=== PATIENT | female | born 1985 | race Caucasian/White ===

== ENCOUNTER 2017-10-14 22:04 | Emergency (ER) | payer OTHER ==
[~2017-10-14] VITALS: Ht 170.2 cm; Wt 86.2 kg
[~2017-10-14 22:04] MED LIST: ACET325; ACET500 PO; ALBIPROI INH; ALBU.083IS IH; ALBU90OI INH; ALBU90OI61 INH; ARIP10 PO; AZIT250 PO; AZIT500 PO; BENZ1 PO; BENZ100A PO; BENZ2 PO; BIRTH CONTROL; BUPR1 PO; CEPH500; CEPH500 PO; CLIN300 PO; Crutch1 EACH MISC; DIVA500EC PO; DOXY100 PO; ESCI10; GUAI100SY PO; GUAI600T33 PO; HALO5 PO; HYDACE5 PO; HYDGUAL120 PO; HYDHOMSY PO; HYDPAM100; Haldol 5 mg Tab5 MG PO; IBUP800 PO; LITH300C PO; MEDR150I IM; META800 PO; OLAN10 PO; OXCA300; OXYACE5T PO; PRED20 PO; PRENZ PO; REMERON PO; RXHYDACE PO; RXOXYACE PO; SULTRIDS PO; TRAM50 PO; TRAZ50; TREANDA25 MG PO; [UNRECOGNIZED DRUG - REMARK]
[2017-10-14 22:30] LABS: BASOPHILS ABSOLUTE AUTO 0.04 K/mm3 (0.00-0.23); BASOPHILS PERCENT AUTO 1 % (0-2); EOSINOPHILS ABSOLUTE AUTO 0.07 K/mm3 (0.00-0.68); EOSINOPHILS PERCENT AUTO 1 % (0-6); Hematocrit 37.3 % (33.0-51.0); Hemoglobin 12.5 g/dL (11.5-16.0); IMMATURE GRAN ABSOLUTE AUTO 0.02 K/mm3 (0.00-0.10); IMMATURE GRAN PERCENT AUTO 0 % (0-1); LYMPHOCYTES ABSOLUTE AUTO 1.37 K/mm3 (0.84-5.20); LYMPHOCYTES PERCENT AUTO 19 % (21-46); MONOCYTES ABSOLUTE AUTO 0.48 K/mm3 (0.16-1.47); MONOCYTES PERCENT AUTO 7 % (4-13); Mean Corpuscular HGB 30.5 pg (26.0-34.0); Mean Corpuscular HGB Conc 33.5 g/dL (31.5-36.5); Mean Corpuscular Volume 91 fL (80-100); Mean Platelet Volume 9.6 fL (9.1-12.4); NEUTROPHILS ABSOLUTE AUTO 5.07 K/mm3 (1.96-9.15); NEUTROPHILS PERCENT AUTO 72 % (41-73); Platelet Count 322 K/mm3 (150-400); RDW Coefficient Variation 12.8 % (11.7-14.2); RDW Standard Deviation 42.3 fL (35.1-46.3); White Blood Cell Count 7.05 K/mm3 (4.00-11.30)
[2017-10-14 22:44] LABS: International Normalized Ratio 1.03; Prothrombin Time Results 10.6 Sec (9.7-11.5)
[2017-10-14 23:04] LABS: Alanine Aminotransfer (ALT/SGP 29 U/L (12-78); Albumin, Blood 3.5 g/dL (3.4-5.0); Albumin/Globulin Ratio 1.2 (0.8-1.8); Alk Phos 67 U/L (50-136); Anion Gap 12 mmol/L (6-16); Aspartate Aminotrans (AST/SGOT 21 U/L (12-37); Bilirubin, Total 0.1 mg/dL (0.1-1.0); Blood Urea Nitrogen 16 mg/dL (8-24); Bun/Creatinine Ratio 25.7 (12.0-20.0); CO2, Blood 21 mmol/L (21-32); Calcium, Blood 7.8 mg/dL (8.5-10.1); Chloride, Blood 110 mmol/L (98-108); Creatinine, Blood 0.62 mg/dL (0.40-1.00); Ethanol (Alcohol), Blood, Med <3 mg/dL; Glomerular Filtration Rate >60 (60-); Glucose, Blood 92 mg/dL (70-99); Potassium, Blood 3.8 mmol/L (3.5-5.5); Sodium, Blood 143 mmol/L (136-145); Total Protein, Blood 6.5 g/dL (6.4-8.2)
== END 2017-10-14 23:44 | disposition home or self-care (01) ==
LOC: ER 22:04
PROVIDERS: Emergency Medicine
DX: S09.90XA Unspecified injury of head, initial encounter (principal); S80.01XA Contusion of right knee, initial encounter; V23.4XXA Motorcycle driver injured in collision with car, pick-up truck or van in traffic accident, initial encounter
CPT/HCPCS: 36415; 70450; 71260; 72125; 73562-RT; 74177; 80053; 85025; 85610; 85730; 86850; 86900; 86901; 99284; G0480; Q9967

== ENCOUNTER 2018-05-30 16:50 | Emergency (ER) | payer OTHER ==
[~2018-05-30] VITALS: Ht 170.2 cm; Wt 81.7 kg
[~2018-05-30 16:50] MED LIST changes: +PROM25 PO
[2018-05-30] MEDS ORDERED: ALBU90OI INH (17:58)
[2018-05-30] MEDS ORDERED: Pepcid20 MG PO (17:58)
== END 2018-05-30 18:08 | disposition home or self-care (01) ==
LOC: ER 16:50
DX: R06.02 Shortness of breath (principal); T43.4X5A Adverse effect of butyrophenone and thiothixene neuroleptics, initial encounter; J44.9 Chronic obstructive pulmonary disease, unspecified; Z88.0 Allergy status to penicillin; Z79.899 Other long term (current) drug therapy
CPT/HCPCS: 99284; Q0163

== ENCOUNTER 2018-07-09 03:13 | Inpatient (IN) | payer OTHER ==
[~2018-07-09] VITALS: Ht 165.1 cm; Wt 77.3 kg
[~2018-07-09 03:13] MED LIST changes: +BENADRYL25 MG PO; +BUSP10 PO; +BUSP15 PO; +DIPH50 PO; +FLUO10 PO; +Pepcid20 MG PO; +Pepcid40 MG PO; +TRAZ100 PO
[2018-07-09 03:32] LABS: Source, Urine Catheter
[2018-07-09 03:36] LABS: Bilirubin, Urine Neg (Neg); Blood, Urine 1+ (Neg); Glucose Qualitative, Urine Neg (Neg); Ketones, Urine 1+ (Neg); Leukocyte Esterase, Urine 1+ (Neg); Nitrite, Urine Neg (Neg); Protein, Urine 3+ (Neg); Urobilinogen, Urine 1+ (Normal)
[2018-07-09 03:39] LABS: Appearance, Urine Clear (Clear); Color, Urine Yellow (P-Yellow)
[2018-07-09 03:42] LABS: Bacteria Many /hpf; Hyaline Casts 25-50 /lpf (0-2); Mucus Mod (0-Heavy); Red Blood Cells, Urine 0-2 /hpf (0-2); Squamous Epithelial Cells Not Seen /hpf (Few)
[2018-07-09 03:43] LABS: PCO2 Arterial 41.4 mmHg (35-45); PO2 Arterial 71.4 mmHg (80-100); pH Blood Arterial 7.41 (7.35-7.45)
[2018-07-09 03:47] LABS: U Amphetamine Screen DETECTED; U Barbituate Screen Not Detected; U Benzodiazapine Screen Not Detected; U Buprenorphine Screen Not Detected; U Cannabinoids Screen DETECTED; U Cocaine Screen Not Detected; U Methadone Screen Not Detected; U Methamphetamine Screen DETECTED; U Opiates Screen Not Detected; U Oxycodone Screen Not Detected; U Phencyclidine Screen Not Detected; U Propoxyphene Screen Not Detected
[2018-07-09 04:14] LABS: BASOPHILS ABSOLUTE AUTO 0.04 K/mm3 (0.00-0.23); BASOPHILS PERCENT AUTO 0 % (0-2); EOSINOPHILS ABSOLUTE AUTO 0.02 K/mm3 (0.00-0.68); EOSINOPHILS PERCENT AUTO 0 % (0-6); Hematocrit 38.8 % (33.0-51.0); Hemoglobin 12.4 g/dL (11.5-16.0); IMMATURE GRAN ABSOLUTE AUTO 0.07 K/mm3 (0.00-0.10); IMMATURE GRAN PERCENT AUTO 1 % (0-1); LYMPHOCYTES ABSOLUTE AUTO 0.81 K/mm3 (0.84-5.20); LYMPHOCYTES PERCENT AUTO 5 % (21-46); MONOCYTES ABSOLUTE AUTO 0.81 K/mm3 (0.16-1.47); MONOCYTES PERCENT AUTO 5 % (4-13); Mean Corpuscular HGB 30.4 pg (26.0-34.0); Mean Corpuscular Volume 95 fL (80-100); NEUTROPHILS PERCENT AUTO 89 % (41-73); Platelet Count 327 K/mm3 (150-400); RDW Coefficient Variation 14.2 % (11.7-14.2); RDW Standard Deviation 49.4 fL (35.1-46.3); Red Blood Cell Count 4.08 M/mm3 (3.80-5.20); White Blood Cell Count 15.45 K/mm3 (4.00-11.30)
[2018-07-09 04:37] LABS: Acetaminophen, Random <2.0 ug/mL (10.0-30.0); Alanine Aminotransfer (ALT/SGP 32 U/L (12-78); Albumin, Blood 3.5 g/dL (3.4-5.0); Albumin/Globulin Ratio 1.2 (0.8-1.8); Alk Phos 77 U/L (50-136); Anion Gap 11 mmol/L (6-16); Aspartate Aminotrans (AST/SGOT 41 U/L (12-37); Bilirubin, Total 0.4 mg/dL (0.1-1.0); Blood Urea Nitrogen 14 mg/dL (8-24); Bun/Creatinine Ratio 19.9 (12.0-20.0); CO2, Blood 24 mmol/L (21-32); Calcium, Blood 8.5 mg/dL (8.5-10.1); Chloride, Blood 113 mmol/L (98-108); Globulin, Blood 2.9 g/dL (2.2-4.0); Glomerular Filtration Rate >60 (60-); Glucose, Blood 93 mg/dL (70-99); Potassium, Blood 3.1 mmol/L (3.5-5.5); Salicylate 2.3 mg/dL (2.8-20.0); Sodium, Blood 148 mmol/L (136-145); Total Protein, Blood 6.4 g/dL (6.4-8.2)
[2018-07-09 04:44] LABS: Thyroid Stimulating Hormone 0.635 uIU/mL (0.360-4.800)
--- NOTE | 2018-07-09 04:50 | NUR ---
PT ARRIVES TO ICU 13 VIA GURNEY FROM ER FOR DX OF EXCITED DELIRIUM. SHE IS RESTING QUIETLY ON ARRIVAL HOWEVER WITH ANY INCREASE IN STIMULATION SHE IS NOTED TO THRASH IN THE BED AND REACH FOR ETT. ETT IS NOTED 8.0 23 CM AT TEETH, RT AT BEDSIDE FOR VENT SET UP AC 14, TV 450, FIO2 30%, PEEP 5.0 LUNGS COARSE THROUGHOUT, MAINTAINING SATS HIGH 90S. HRR, SINUS TO SINUS TACH ON MONITOR, PRESSURE MAINTAINING WITH PROPOFOL AT 75 MCG/KG/MIN, CAP REFILL BRISK, PULSES FULL X 4 EXTREMITIES. ABD SOFT, HYPOACTIVE BOWEL TONES NOTED, NO GRIMACING WITH PALPATION, OG IN PLACE, HOOKED TO LIS AT THIS TIME, CLEAR LIGHT YELLOW DRAINAGE NOTED. TEMP PROBE KNOWLES IN PLACE DRAINING CLEAR YELLOW URINE TO GRAVITY. IV ACCESS IS NOTED 18 G FIELD START EJ TO RIGHT NECK INFUSING PROPOFOL AND 20 G IV TO RIGHT FOREARM INFUSING NS BOLUS FROM ER. DR CARDONA ARRIVES TO BEDSIDE.
[2018-07-09 04:51] LABS: CPK Creatine Kinase 1117 U/L (26-193); Ethanol (Alcohol), Blood, Med <3 mg/dL
--- NOTE | 2018-07-09 07:14 | NUR ---
ASSUMED CARE BEDSIDE REPORT FROM ASHLEY FIELDS RN. PATIENT IS INTUBATED, SEDATED ON PROPOFOL AT 75 MCG/KG/MIN AND IS AGITATED WITH STIMULATION. RESTRAINED AND VENTILATED. A/C 14 Vt 450 PEEP 5 FI02 30% RR 14-16. 8.0 ETT 24 ATT. OGT LIS WITH BROWN DRAINAGE. RIGHT GREAT TOE HAS 3CM CIRCULAR WOUND, POSSIBLE EXIT WOUND FROM 0.5 CM WOUND ON TOP OF FOOT.
--- NOTE | 2018-07-09 07:24 | NUR ---
PROPOFOL TITRATED TO 65 MCG/KG/MIN
--- NOTE | 2018-07-09 10:54 | NUR ---
MD VISIT DR. ARAUJO IN
--- NOTE | 2018-07-09 15:00 | NUR ---
ASSUMED CARE PT. REMAINS SEDATED AND INTUBATED. AC 14, TV 450, 30%, PEEP 5. PROPOFOL CURRENTLY AT 75MCG/KG/MIN AT THIS TIME. PT DOES AROUSE WITH ORAL CARE AND BEGINS TO THRASH IN THE BED. BILAT WRIST RESTRAINTS IN PLACE FOR SAFETY. PT. VSS AT THIS TIME. LS CLEAR T/O CLEAR SECREATIONS FROM ETT. PT. HAS NS INFUSING AT 125ML/HR. KNOWLES IN PLACE DRAINING TO GRAVITY. BED IN LOW POSITION. FAMILY AT BEDSIDE WITH PALLIATIVE CARE.
--- NOTE | 2018-07-09 15:12 | NUR ---
Met with pt's father, Cristiano,at bedside. He was very tearful and talkative. He tells me he has mental illness as well and has been hospitalized for SI. We have a rapport from his last hospitalization. He expressed guilt for passing along his illness to his dtr. He has had to physically remove her from his home for her drug abuse. I provided theraputic listening and gentle area counselor to good effect. Encouraged self-care with the assurance Axel was safe and well cared-for. I will remain available to pt and family.
--- NOTE | 2018-07-09 15:38 | NUR ---
REPORT GIVEN TO TL PINO. PROPOFOL AT 75 MCG/KG/MIN. FATHER WAS IN TO VISIT.
--- NOTE | 2018-07-10 | NUR ---
ASSUMED CARE OF PT. CONT VENTED & SEDATED W BILAT SOFT WRIST RESTRAINTS.
[2018-07-10 05:04] LABS: PCO2 Arterial 33.8 mmHg (35-45); PO2 Arterial 80.5 mmHg (80-100); pH Blood Arterial 7.46 (7.35-7.45)
[2018-07-10 06:06] LABS: BASOPHILS ABSOLUTE AUTO 0.03 K/mm3 (0.00-0.23); BASOPHILS PERCENT AUTO 1 % (0-2); EOSINOPHILS ABSOLUTE AUTO 0.14 K/mm3 (0.00-0.68); EOSINOPHILS PERCENT AUTO 2 % (0-6); Hematocrit 36.8 % (33.0-51.0); Hemoglobin 11.9 g/dL (11.5-16.0); IMMATURE GRAN ABSOLUTE AUTO 0.02 K/mm3 (0.00-0.10); IMMATURE GRAN PERCENT AUTO 0 % (0-1); LYMPHOCYTES ABSOLUTE AUTO 1.32 K/mm3 (0.84-5.20); LYMPHOCYTES PERCENT AUTO 20 % (21-46); MONOCYTES ABSOLUTE AUTO 0.47 K/mm3 (0.16-1.47); MONOCYTES PERCENT AUTO 7 % (4-13); Mean Corpuscular HGB 30.6 pg (26.0-34.0); Mean Corpuscular HGB Conc 32.3 g/dL (31.5-36.5); Mean Corpuscular Volume 95 fL (80-100); Mean Platelet Volume 10.2 fL (9.1-12.4); NEUTROPHILS ABSOLUTE AUTO 4.51 K/mm3 (1.96-9.15); NEUTROPHILS PERCENT AUTO 70 % (41-73); Platelet Count 261 K/mm3 (150-400); RDW Coefficient Variation 14.4 % (11.7-14.2); RDW Standard Deviation 49.7 fL (35.1-46.3); Red Blood Cell Count 3.89 M/mm3 (3.80-5.20); White Blood Cell Count 6.49 K/mm3 (4.00-11.30)
[2018-07-10 06:25] LABS: Alanine Aminotransfer (ALT/SGP 25 U/L (12-78); Albumin, Blood 2.6 g/dL (3.4-5.0); Alk Phos 66 U/L (50-136); Anion Gap 11 mmol/L (6-16); Aspartate Aminotrans (AST/SGOT 22 U/L (12-37); Bilirubin, Total 0.2 mg/dL (0.1-1.0); Blood Urea Nitrogen 9 mg/dL (8-24); Bun/Creatinine Ratio 18.8 (12.0-20.0); CO2, Blood 22 mmol/L (21-32); Calcium, Blood 7.7 mg/dL (8.5-10.1); Chloride, Blood 113 mmol/L (98-108); Creatinine, Blood 0.48 mg/dL (0.40-1.00); Globulin, Blood 2.7 g/dL (2.2-4.0); Glomerular Filtration Rate >60 (60-); Glucose, Blood 68 mg/dL (70-99); Magnesium, Blood 2.1 mg/dL (1.6-2.4); Phosphorus, Blood 2.5 mg/dL (2.5-4.9); Potassium, Blood 2.8 mmol/L (3.5-5.5); Sodium, Blood 146 mmol/L (136-145); Total Protein, Blood 5.3 g/dL (6.4-8.2)
--- NOTE | 2018-07-10 07:15 | NUR ---
LABS NOTED THIS AM, MESSAGE LEFT FOR DR ARAUJO TO PLEASE CALL.
--- NOTE | 2018-07-10 07:15 | NUR ---
START OF SHIFT NOTE: RECEIVED REPORT FROM TL BARTLETT, ASSUMED CARE, PATIENT IS INTUBATED AND SEDATED, CURRENTLY ON 75 MCG OF PROPOFOL, VENT SETTINGS ARE: 14/5/450/FiO2 25 %, PATIENT APPEARS TO BE RESTING CALMLY, RESTRAINTS IN PLACE, LUNG SOUNDS CLEAR, SR/SB, HYPOACTIVE BT'S, KNOWLES CATHETER IN PLACE, IVF'S INFUSING VIA R EJ AND R FA PIV'S, POTASSIUM HUNG FOR A LAB VALUE OF 2.8, NS CONTINUES AT 125 CC/HR, SKIN SHOWS MULTIPLE BRUISING THROUGHOUT THE ENTIRE BODY, ULCER NOTED ON PLATAR SIDE OF RIGHT BIG TOE, CALL LIGHT IN REACH, WILL CONTINUE TO MONITOR.
--- NOTE | 2018-07-10 08:50 | NUR ---
DR. GILES IN TO SEE PATIENT, PROPOFOL DECREASED TO 25, WAKE UP PATIENT, POSSIBLY EXTUBATE, PER DR. GILES, "PATIENT IS NOT ON HOLD, AND IF SHE WANTS TO LEAVE AMA, SHE CAN".
--- NOTE | 2018-07-10 09:22 | NUR ---
PATIENT WS EXTUBATED AT [address] GILES AT BEDSIDE, NEW ORDERS RECEIVED, CALL LIGHT IN EACH, WILL CONTINU TO MONITOR.
--- NOTE | 2018-07-10 10:00 | NUR ---
NICOLE NOW EXTUBATED AND EXTREMELY AGITATED AND RESTLESS, STATED "YOU CAN'T HOLD ME HERE, I HAVE A CHILD, I NEED TO GO OUT AND SMOKE", PATIENT'S FATHER AT BEDSIDE, PRECEDEX DRIP STARTED, NICOLE ALSO RECEIVED A TOTAL OF 6 MG OF ATIVAN, CONTINUES TO BE RESTLESS AND AGITATED, PATIENT HAD TO BE RESTRAINED ON ANKLES WELL, D/T POSSIBLE HARM TO HERSELF WHILE TRYING TO CLIMB OUT OF BED, DR. GILES AT BEDSIDE, NEW ORDERS RECIEVED, DR. ARAUJO AT BEDSIDE, NO NEW ORDERS RECEIVED, CALL LIGHT IN REACH, WILL CONTINUE TO MONITOR.
--- NOTE | 2018-07-10 10:41 | NUR ---
PATIENT RECEIVED AN ADDITIONAL [address] GILES, APPEARS CALMER BUT CONTINUES TO PULL ON RESTRAINTS AND LINES.
--- NOTE | 2018-07-10 11:18 | NUR ---
PATIENT'S MOTHER CALLED, SHE IS ALSO PATIENT'S LEGAL GUARDIAN, UPDATE GIVEN VIA TELEPHONE, WILL VISIT PATIENT LATER.
--- NOTE | 2018-07-10 13:51 | NUR ---
PATIENT'S MOTHER AT BEDSIDE, UPDATED ON HER CONDITION BY DR. GILES AND THIS RN.
--- NOTE | 2018-07-10 15:52 | NUR ---
CALLED DR. IGNACIO TO CONFIRM CONSULT, DR. IGNACIO WAS APPARENTLY NOT AWARE OF THIS PATIENT, WILL SEE HER TOMORROW.
--- NOTE | 2018-07-10 17:08 | NUR ---
DR. GILES CALLED WITH POTASSIUM RESULTS, REDRAW RESULTED IN K+ 3.6, NO NEW ORDERS RECEIVED.
--- NOTE | 2018-07-10 17:58 | NUR ---
SHIFT SUMMARY NOTE: PATIENT WAS EXTUBATED THIS AM AT 0913, AND BECAME INCREASINGLY AGITATED AND RESTLESS, PATIENT RECEIVED A TOTAL OF 22 MG OF ATIVAN AND 50 MCG OF FENTANYL, SHE IS ALSO ON A PRECEDEX DRIP AT 0.7, PER DR. GILES PATIENT MAY RECEIVE ATIVAN AND FENTANYL FOR AGITATION AND RESTLESSNESS RATHER THAN INCREASE PRECEDEX DRIP, PATIENT IS ALERT BUT CONFUSED ORIENTED TO SELF ONLY, MOSTLY MUMBLES INCOHERENT SENTENCES AND WORDS, LUNG SOUNDS CLEAR, PATIENT PLACED ON 2L NC AFTER REPEATED ATIVAN USE AND PATIENT SNORING IN ROOM, O2 BRIEFLY DOWN TO 89 %, SR/SB, BOWEL TONES ARE PRESENT, KNOWLES CATHETER IN PLACE WITH 450 CC OUT DURING DAY SHIFT, PATIENT HAS ULCER ON RIGHT BIG TOE, PODIATRY CONSULT IN TO SEE PATIENT, DR. IGNACIO WILL SEE PATIENT TOMORROW IN AM, PATIENT IS IN 4 POINT RESTRAINTS, FAMILY WAS AT BEDSIDE THROUGHOUT DAY, CALL LIGHT IN REACH, WILL CONTINUE TO MONITOR AND GIVE REPORT TO ONCOMING U.S. REPRESENTATIVE.
--- NOTE | 2018-07-10 18:50 | NUR ---
DR. ELLIOTT, IN FLIGHT REFUELING SYSTEM REPAIRER IN TO SEE PATIENT, NEW ORDERS RECEIVED.
--- NOTE | 2018-07-10 21:59 | NUR ---
ASSUMED CARE OF PT REPORT RECEIVED FROM TL JOHNSON. PT LYING SUPINE IN BED, HOB AT 30 DEGREES. PT HAS BILATERAL UPPER/LOWER SOFT WRIST RESTRAINTS. PT OPENS EYES TO VERBAL STIMULATION AND MUMBLES RESPONSE TO QUESTIONS. PT IS CONFUSED, WHEN ASKED IF SHE KNEW WHERE SHE WAS PT RESPONDED "[facility]", WHEN ASKED WHAT YEAR IT WAS PT STATES "I ALREADY KNOW", PT STATES HER BIRTHDAY IS "[birth year]", ACTUAL BIRTHDAY IS March. WHEN I ASKED PT IF SHE TOOK SOMETHING OR DRANK SOMETHING WHILE VISITING HER MOM PT RESPONDED "I DON'T GO TO MOMS", I REMINDED PT THAT SHE WAS AT HER MOM'S HOUSE AND THE SHE WAS SOAKING HER TOE PER HER MOM, PT RESPONDED "PEROXIDE". SEE FULL SHIFT ASSESSMENT.
[2018-07-11 04:07] LABS: BASOPHILS ABSOLUTE AUTO 0.02 K/mm3 (0.00-0.23); BASOPHILS PERCENT AUTO 0 % (0-2); EOSINOPHILS ABSOLUTE AUTO 0.11 K/mm3 (0.00-0.68); EOSINOPHILS PERCENT AUTO 1 % (0-6); Hematocrit 40.5 % (33.0-51.0); Hemoglobin 13.1 g/dL (11.5-16.0); IMMATURE GRAN ABSOLUTE AUTO 0.02 K/mm3 (0.00-0.10); IMMATURE GRAN PERCENT AUTO 0 % (0-1); LYMPHOCYTES ABSOLUTE AUTO 0.89 K/mm3 (0.84-5.20); LYMPHOCYTES PERCENT AUTO 11 % (21-46); MONOCYTES ABSOLUTE AUTO 0.47 K/mm3 (0.16-1.47); MONOCYTES PERCENT AUTO 6 % (4-13); Mean Corpuscular HGB 30.7 pg (26.0-34.0); Mean Corpuscular HGB Conc 32.3 g/dL (31.5-36.5); Mean Corpuscular Volume 95 fL (80-100); Mean Platelet Volume 10.2 fL (9.1-12.4); NEUTROPHILS PERCENT AUTO 82 % (41-73); Platelet Count 269 K/mm3 (150-400); RDW Coefficient Variation 13.8 % (11.7-14.2); RDW Standard Deviation 48.1 fL (35.1-46.3); Red Blood Cell Count 4.27 M/mm3 (3.80-5.20); White Blood Cell Count 8.21 K/mm3 (4.00-11.30)
[2018-07-11 04:26] LABS: Albumin, Blood 2.8 g/dL (3.4-5.0); Anion Gap 13 mmol/L (6-16); Blood Urea Nitrogen 4 mg/dL (8-24); CO2, Blood 22 mmol/L (21-32); CPK Creatine Kinase 625 U/L (26-193); Chloride, Blood 110 mmol/L (98-108); Creatinine, Blood 0.44 mg/dL (0.40-1.00); Glomerular Filtration Rate >60 (60-); Glucose, Blood 76 mg/dL (70-99); Magnesium, Blood 1.8 mg/dL (1.6-2.4); Phosphorus, Blood 2.8 mg/dL (2.5-4.9); Potassium, Blood 3.3 mmol/L (3.5-5.5); Sodium, Blood 145 mmol/L (136-145)
--- NOTE | 2018-07-11 06:02 | NUR ---
SHIFT SUMMARY NO ACUTE CHANGES OVERNIGHT. PT CONTINUES TO BE CONFUSED AND MUMBLING NONSENSICALLY. PT HAD BOWEL MOVEMENT, DURING LINEN CHANGE PT HAD ONE WRIST RESTRAINT REMOVED AND PT BEGAN PULLING AT SURROUNDING AND TRYING TO GET OUT OF BED DESPITE BEING REORIENTED. PT REMAINS IN BILATERAL UPPER/LOWER SOFT RESTRAINTS. PRECEDEX REMAINS AT 0.7 MCG/KG/HR. 2300 ML OF CLEAR URINARY OUTPUT. WILL REPORT TO DAYSHIFT NURSE.
--- NOTE | 2018-07-11 07:26 | NUR ---
START OF SHIFT NOTE: PATIENT IS SLEEPING AND SNORING LOUDLY, VSS, AFEBRILE, LUNGS SOUNDS CLEAR BUT DIMINISHED, NSR, HR 60'S TO 70'S, OCCASIONALLY DROPS BRIEFLY TO LOW 50'S DURING SLEEPING, BOWEL TONES PRESENT IN ALL FOUR QUADRANTS, KNOWLES CATHETER IN PLACE AND DRAINING CLEAR YELLOW URINE, BIG TOE ON RIGHT FOOT DRESSED WITH FOAM DRESSING AFTER APPLYING SANTYL CREAM, DRESSING TO BE CHANGED BY 07-13-[address] ELLIOTT, PODIATRY, PIV'S IN R EJ AND R FA ARE INFUSING, 1/2 NS AT TKO, ANCEF, AND PRECEDEX AT 0.7 MCG AT THIS TIME, CALL LIGHT IN REACH, WILL CONTINUE TO MONITOR.
--- NOTE | 2018-07-11 15:12 | NUR ---
ATTEMPTED TO CALL DR. IGNACIO, VOICE MAIL ANSWERED, LEFT REMINDER MESSAGE FOR CONSULT IN ROOM 13.
--- NOTE | 2018-07-11 16:34 | NUR ---
DR. IGNACIO RETURNED CALL, WILL BE HERE SHORTLY.
--- NOTE | 2018-07-11 16:50 | NUR ---
DR. IGNACIO IN ROOM SPEAKING WITH PATIENT'S MOTHER, PATIENT SLEEPING AT THIS TIME.
--- NOTE | 2018-07-11 17:28 | NUR ---
DR. IGNACIO IN TO SEE PATIENT TRANSFER ORDERS TO PSYCHIATRIC HOSPITAL, NEEDS LEGAL GUARDIANSHIP PAPERS FROM MOTHER, IGNACIO, PATIENT'S MOM, CALLED AND NOTIFIED, WILL BRING IN PAPERS AFTER 2000 HOURS TONIGHT. WILL LEAVE MESSAGE WITH NIGHTSHIFT.
--- NOTE | 2018-07-11 17:55 | NUR ---
SHIFT SUMMARY NOTE: PATIENT CONTINUES TO BE RESTRAINED, SLEEPING MOST OF THE DAY, ATIVAN 4 MG IV X 3, PRECEDEX AT 0.7, K+ 3.3., REPLACED WITH 40 MeQ IV, IVF INFUSING, PIV'S IN R EJ AND R FA ARE PATENT AND INFUSING, BIG TOE ON RIGHT FOOT WAS REDRESSED AFTER PATIENT MANAGED TO REMOVE SOCK AND DRESSING, PATIENT'S PARENTS AT BEDSIDE FOR MOST OF THE DAY, DR. IGNACIO IN TO SEE PATIENT AND SPOKE WITH MOTHER, TRANSFER ORDER TO PSYCHIATRIC HOSPITAL IN CHART ALONG WITH LEGAL GUARDIANSHIP DOCUMENTATION, PATIENT HAD 2 BM'S, SOME ICE CHIPS GIVEN, NO PROBLEM SWALLOWING, FOR DETAILS SEE SHIFT ASSESSMENT DOCUMENTATION AND NURSES NOTES, CALL LIGHT IN REACH, WILL COTNINUE TO MONITOR, AND GIVE REPORT TO ONCOMING CLASSIFIER OPERATOR.
--- NOTE | 2018-07-11 20:09 | NUR ---
ASSUMED CARE OF PT PT LYING IN BED IN BILATERALLY UPPER/LOWER SOFT RESTRAINTS. PT IS PULLING ON RESTRAINTS AND YELLING. PT CONTINUES TO BE CONFUSED. PT THINKS IT IS "2018", DOESNT KNOW WHICH HOSPITAL SHE IS IN BUT KNOWS SHE'S IN "[place]". DURING SHIFT ASSESSMENT IT WAS NOTICED THAT PT PULLED HER EJ LINE OUT. NO BLEEDING NOTED. COVERED SITE WITH CLEAR DRESSING. PRECEDEX 0.7 MCG/KG/MIN RUNNING. SEE FULL SHIFT ASSESSMENT.
[2018-07-12 04:23] LABS: Albumin, Blood 2.8 g/dL (3.4-5.0); Anion Gap 13 mmol/L (6-16); Blood Urea Nitrogen 2 mg/dL (8-24); CO2, Blood 21 mmol/L (21-32); Calcium, Blood 7.9 mg/dL (8.5-10.1); Chloride, Blood 106 mmol/L (98-108); Glomerular Filtration Rate >60 (60-); Glucose, Blood 72 mg/dL (70-99); Phosphorus, Blood 2.8 mg/dL (2.5-4.9); Sodium, Blood 140 mmol/L (136-145)
--- NOTE | 2018-07-12 05:45 | NUR ---
SHIFT SUMMARY NO ACUTE CHANGES OVERNIGHT. PT SLEPT FOR MOST OF THE NIGHT, PRECEDEX 0.7MCG/KG/HR RUNNING. PT ONLY REQUIRED 1 DOSE OF ATIVAN. PT CONTINUES TO BE CONTINUES TO BE CONFUSED TO WHERE SHE IS AND WHY SHE IS IN THE HOSPITAL. PT ASKS REPEATEDLY "WHAT TESTS ARE YOU RUNNING ON ME". WHEN REORIENTED PT DENIES TAKING ANY DRUGS. VSS. WILL REPORT TO DAYSHIFT NURSE.
--- NOTE | 2018-07-12 07:30 | NUR ---
ASSUMED CARE: PT RESTING QUIETLY IN BED AT THIS TIME. [address] PRECEDEX AT 0.7. WILL CONTINUE TO MONITOR AND TITRATE ABLE.
--- NOTE | 2018-07-12 10:08 | NUR ---
DISCUSSED WITH DR ARAUJO PT'S CURRENT STATUS AND THAT SHE IS ON 0.7 OF PRECEDEX. DISCUSSED THE OPTION OF PREMEDICATING PRIOR TO TITRATION WHICH DR WAS AGREEABLE. PT HAS BEEN TITRATED TO 0.6 AND PREMEDICATED WITH 4MG OF ATIVAN. EMERGENCY DEPARTMENT MANAGER AND SURROUNDING NURSES AWARE.
--- NOTE | 2018-07-12 17:50 | NUR ---
SHIFT SUMMARY: PT'S FATHER HAS CALLED TO CHECK IN A COUPLE OF TIMES THIS SHIFT. PT REMAINS SEDATED WITH 4 POINT RESTRAINTS ON. TITRATING PRECEDEX AND GIVING ATIVAN TO ASSIST WITH THIS. AWAITING IN PATIENT PSYCH. NO FURTHER NEEDS OR CONCERNS NOTED
--- NOTE | 2018-07-13 07:39 | NUR ---
SUMMARY VITALS STABLE THROUGHOUT NIGHT. SEE FLOWSHEET/ASSESSMENTS. IN THE EVENING PT AGITATED, CONFUSED, YELLING AND PULLING AT RESTRAINTS AND LINES. PRECEDEX TITRATED. NIGHT HAS PROGRESSED, PT HAS BECOME MORE ORIENTED, FOLLOWING COMMANDS AND COOPERATIVE. RESTRAINTS DISCONTINUED, PRECEDEX TITRATED DOWN. SEE FLOWSHEET. OTHERWISE, NO ACUTE CHANGES. REPORT GIVEN TO JUD DAY SHIFT RN.
--- NOTE | 2018-07-13 08:30 | NUR ---
ASSUMED CARE / DR. ARAUJO: REPORT RECEIVED FROM YELENA Frausto RN. ASSUMED CARE OF THIS PT AT APPROX 0700. ON ASSESSMENT, THE PT IS RESTING QUIETLY. SHE DENIES PAIN BUT STS SHE IS HUNGRY THIS AM. PLAN TO REMOVE KNOWLES IF PT MORE MOBILE THIS SHIFT. PROVIDER AT BEDSIDE TO SEE PT. POC HAS BEEN DISCUSSED. SHE STS THE PT IS OKAY TO EAT AT THIS TIME. ORDERS HAVE BEEN PLACED. PLAN TO STOP PRECEDEX THIS SHIFT, IF PT TOLERATES WELL, TX TO MED NO TELE PER PROVIDER. WILL CONTINUE TO MONITOR & UPDATE NEEDED.
--- NOTE | 2018-07-13 12:09 | NUR ---
UPDATE / ROOM ASSIGNMENT: PT REMAINS ON RA W/ O2 SATS > 92%. PRECEDEX DRIP HAS BEEN TURNED OFF SINCE 839. PT IS NOW MED NO TELE STATUS. SHE REMAINS SLIGHTLY IMPULSIVE & BED ALARM IS ON FOR SAFETY, SHE IS REDIRECTABLE & FOLLOWING COMMANDS APPROPRIATELY THOUGH. PLAN IS TO REMOVE KNOWLES PRIOR TO TX OUT OF UNIT. TX TO ROOM 354 HAS BEEN ASSIGNED. ATTEMPTED TO CALL RECEIVING RN FOR REPORT, SHE STS SHE WILL CALL BACK SOON. WILL CONTINUE TO MONITOR & UPDATE NEEDED.
--- NOTE | 2018-07-13 13:31 | NUR ---
TRANSFER TO ROOM 354: REPORT HAS BEEN GIVEN TO KRYSTAL Marrufo RN TO ASSUME CARE. HEART MONITOR & SpO2 PROBE HAVE BEEN REMOVED. CHART & MEDS HAVE BEEN TAKEN UP W/ PT. SHE IS DROWSY BUT VERBALIZES UNDERSTANDING OF REASON FOR TX. PT TAKEN UPSTAIRS VIA BED BY ALYSON Edwards RN.
--- NOTE | 2018-07-13 17:45 | NUR ---
SHIFT SUMMARY- PT ICU TRANSFER THIS AFTERNOON. PT DROWSY UPON ARRIVAL. PT AXO THIS PM. PT C/O PAIN IN HER R FOOT. MEDS GIVEN PER EMAR. ULCER ON R FOOT. DRESSING C/D/I. PT DENIES N/V. DENIES SOB. RESP E/U ON RA. PT'S FATHER IN TO VISIT. BED ALARM ON. CALL LIGHT IN REACH. NO OTHER SIGNIFICANT CHANGES THIS SHIFT.
--- NOTE | 2018-07-14 04:56 | NUR ---
SHIFT SUMMARY PT HAD FOOT DISCOMFORT AND TX PER EMAR. PT HAS SLEPT T/O SHIFT. PT HAD NO COMPLAINTS OR ISSUES. PT SLEEPING AND BREATHING EASY. CALL LIGHT IN REACH.
[2018-07-14 05:03] LABS: CPK Creatine Kinase 108 U/L (26-193)
[2018-07-14 05:07] LABS: Albumin, Blood 2.7 g/dL (3.4-5.0); Anion Gap 8 mmol/L (6-16); Blood Urea Nitrogen 4 mg/dL (8-24); Bun/Creatinine Ratio 10.6 (12.0-20.0); CO2, Blood 26 mmol/L (21-32); Calcium, Blood 8.1 mg/dL (8.5-10.1); Chloride, Blood 107 mmol/L (98-108); Creatinine, Blood 0.38 mg/dL (0.40-1.00); Glomerular Filtration Rate >60 (60-); Glucose, Blood 101 mg/dL (70-99); Phosphorus, Blood 3.1 mg/dL (2.5-4.9); Potassium, Blood 3.6 mmol/L (3.5-5.5); Sodium, Blood 141 mmol/L (136-145)
--- NOTE | 2018-07-14 20:03 | NUR ---
SHIFT SUMMARY: A&OX4. PLEASANT AND COOPERATIVE T/O DAY. ANXIETY THIS AFTERNOON, REDIRECTABLE. SHE HAD AN EPPISODE OF TACHYCARDIA WHEN AMBULATING TO AND FROM RESTROOM. SHE DENIED CP/SOB. REPORTED INC IN ANXIETY AFTER REDIRECTION HER VSS. EATING/DRINKING AND VOIDING WELL. SENT REQ TO [facility] FOR A LIST OF PT'S HOME MEDS PER HER REQ. SHE WOULD LIKE TO RESUME HER PSYCH REGIMEN BUT CAN'T REMEMBER HER MEDS OR DOSING. PLEASE FOLLOW UP ON HOME MEDS.
--- NOTE | 2018-07-15 00:58 | NUR ---
PT WENT OUT TO SMOKE AT 0030 HRS. PT INFORMED THAT SHE IS ON CARDIAC TELE AND FOR SAFETY THAT SHE SHOULD REFRAIN. PT UNDERSTOOD CONCERN AND CONTINUED OUTSIDE TO SMOKE. DURING PT'S ABSENCE CREDIT COLLECTIONS ANALYST CALLED AN STATED PT HEART RATE INCREASED TO 160 BPM.
--- NOTE | 2018-07-15 05:05 | NUR ---
SHIFT SUMMARY PT HAD GOOD SHIFT. PT SLEPT WELL. PT DID HAVE SOME ANXIETY AND PAIN. PT TX PER EMAR WITH GOOD RESULTS. PT DID GO OUT TO SMOKE WITHOUT INCIDENT. PT CURRENTLY SLEEPING AND BREATHING EASY.
--- NOTE | 2018-07-15 13:09 | NUR ---
SPOKE WITH DR. ARAUJO ABOUT PATIENT STATING SHE WAS ALLERGIC TO TRAMODOL. PATIENT UNSURE WHAT REACTION IS. DR. ARAUJO TO REVIEW MEDICATIONS AND PAIN MANAGEMENT.
--- NOTE | 2018-07-15 17:42 | NUR ---
Per staff request, I met with Axel to provide rehabilitation services counselor and encouragement. Axel was pleasant, polite and soft-spoken. She denies doing anything other than "smoking on my mom's lawn." She beleives her mom is sabotaging her. Attempted to move Axel to more positive topic. We spoke about her son and her love for him for awhile. Her father called and Axel asked me to return tomorrow. We had an easy rapport and I will continue to see Axel as schedule permits.
--- NOTE | 2018-07-15 18:44 | NUR ---
PATIENT A/OX4, UP INDEPENDENTLY IN ROOM. R GREAT TOE ULCER, DRESING CHANGED THIS SHIFT URING ARABELLA SANDOVAL AND SUSAN. PATIENT AGITATED AT TIMES, BUT MEDICATIONS CHANGED AND SHE FEELS BETTER NOW. SHE WILL BE TRANSFERRED TO A PSYCHIATRIC FACILITY WHEN BED AVAILABLE. IBUPROFEN GIVEN X1 THIS SHIFT FOR R GREAT TOE PAIN. TOLERATING REGULAR DIET. VSS. LUNGS CLEAR, ON RA.
--- NOTE | 2018-07-16 02:49 | NUR ---
07/16/18 0250 Pt's door is closed per request. Video camera Celeste engle, states pt is in bed sleeping. WILL CONTINUE TO MONITOR.
--- NOTE | 2018-07-16 07:19 | NUR ---
07/16/18 0630 SLEEPING WELL THIS SHIFT. ON VIDEO WATCH AND WAS ALLOWED TO HAVE DOOR CLOSED "SO I CAN SLEEP". VITALS STABLE. PT DOES WAKE UP ANXIOUS AND THUS THE HEART RATE IS UP. DRESSING TO RT FOOT INTACT WITH DINORA WRAP.
--- NOTE | 2018-07-16 08:02 | NUR ---
PT SITTING UP IN BED AWAKE, A/OX4. PT REPORTS 7/10 PAIN TO RIGHT GREAT TOE, PT REQUESTS BENADRYL AT THIS TIME. NICOTINE PATCH APPLIED. DRESSING TO RIGHT GREAT TOE C/D/I. PT COOPERATIVE WITH CARE AND ASSESSMENT. PT UP AMBULATING IN ROOM THIS AM. PER ORDER PT TO NOT GO OUTSIDE AND SMOKE, PT FOLLOWING RECOMMENDATIONS AT THIS TIME. VIDEO MONITOR IS IN PLACE WITH PT.
--- NOTE | 2018-07-16 13:13 | NUR ---
DR IGNACIO INTO SEE PT.
--- NOTE | 2018-07-16 15:02 | NUR ---
FALL/SEIZURE- THIS RN WAS NEXT DOOR WITH A PT WHEN I HEARD A LOUD BANG COMING FROM ROOM 345. RAN NEXT DOOR TO FIND THE PT ON THE FLOOR BY THE WINDOW, APPEAR TO HAVE SEIZURE LIKE ACTIVITY BANGING HEAD AGAINST THE FLOOR WITH CLEAR SUBSTANCE COMING FROM MOUTH. PT NOTED TO BE PALE IN COLOR WITH BLUE MOUTH. PT WENT LIMP FOR SHORT PERIOD OF TIME WHEN CODE WAS CALLED. PT AWOKE AND BECAME VIOLENT FOR A MINUTE THEN STOOD UP AND APPEARED TO NOT KNOW WHAT JUST HAPPENED. PT DENIES TAKING ANYTHING BUT PRESCRIBED MEDICATIONS. APROX 5 MIN PRIOR PT WAS AMBULATING IN HALLWAY. PT HAS BEEN UPSET AT TIMES DUE TO NOT BEING ABLE TO GO OUTSIDE AND SMOKE BUT WAS COOPERATIVE WHEN ASKED TO GO BACK TO HER ROOM. BP 160/92, HR 138, R 22, 97%RA, AND TEMP 98.3. MESSAGE LEFT FOR DR MARQUEZ. DR COLLINS AT BEDSIDE DURING EPISODE. SPOKE WITH MONITORS WHO REPORTS PT WAS STANDING AT THE WINDOW JUST PRIOR AND THEN WAS ON THE GROUND. PT CURRENTLY SITTING UP IN BED TALKING WITH HER FATHER. HER MOTHER DID BRING IN BELONGINGS EARLIER TODAY WHICH INCLUDED BAG BALM, TOOTH BRUSH AND TOOTH PASTE, AND A FEW ITEMS OF CLOTHING THAT SHE HAD SHOWN ME.
--- NOTE | 2018-07-16 15:31 | NUR ---
PT ADAMENT THAT SHE NEEDS TO LEAVE TO GO SEE HER COMMUNICATIONS CONTROLLER, DAD STILL AT BEDSIDE. PT MAKING PHONE CALL FOR A RIDE. I NOTIFIED PT THAT SHE CANNOT LEAVE THE HOSPITAL PER HER MOTHERS REQUEST WHO HAS GAURDIANSHIP OF PT. DR IGNACIO NOTIFIED OF PREVIOUS SITUATION WELL PT WANTING TO LEAVE. DR IGNACIO ORDERED HALDOL 5MG IM, ATIVAN 1MG IM, BENADRYL 50MG IM ALL TO BE GIVEN TOGETHER Q4H PRN FOR AGITATION.
--- NOTE | 2018-07-16 16:21 | NUR ---
DR MARQUEZ IN TO SEE PT.
--- NOTE | 2018-07-16 16:43 | NUR ---
DR MARQUEZ IN TO SEE PT. DR MARQUEZ DC'D IM HALDOL AND ATIVAN, INFORMED HIM THAT DR IGNACIO ORDERED THIS TODAY TO BE GIVEN TOGETHER WITH BENADRYL Q4 PRN FOR AGITATION. PER DR MARQUEZ OK TO ADD BACK ON.
--- NOTE | 2018-07-16 16:44 | NUR ---
SHIFT SUMMARY- PT A/O X4. PT ASKS FREQUENTLY TO GO OUTSIDE AND SMOKE, GO TO SEE HER GRANDPARENTS, OR TO SEE HER FORMULA CLERK. PT NOTIFIED THAT SHE CANNOT LEAVE THE SC[facility] DUE TO HER MOTHER HAVING GUARDIANSHIP AND AWAITING INPATIENT PSYCH. PT AMBULATES IN ROOM AND HALLWAY INDEP. PT MEDICATED X2 FOR PAIN TO RIGHT FOOT. DRESSING TO RIGHT FOOT GREAT TOE DONE TWICE TODAY. PT HAD AN EPISODE WHERE SHE ENDED UP ON THE GROUND IN HER ROOM, PT WITH SEIZURE LIKE ACTIVITY AND BANGING HEAD AGAINST THE GROUND THEN WENT UNRESPONSIVE. PT REPORTS SHE DOES NOT RECALL THE EPISODE AND STATES IT DIDNT HAPPEN. PT MOTHER AND SON WELL FATHER IN TO SEE PT TODAY. NO OTHER ACUTE CHANGES THIS SHIFT.
--- NOTE | 2018-07-16 18:56 | NUR ---
Axel was sitting up in bed. Her father, Cristiano, was at bedside and very tearful. Axel had numerous complaints: she wants to smoke, she denies any reason for a code to have been called today, she claims "they" are not giving her medication properly, and she wants to go home with her dad. I gently explained there was little I could do to address her concerns. At this point, she became tearful and soft-spoken. She asked me to pray for her and she was tearful throughout it. Her father admits to "being freaked out" by the code blue. Both pt and dad respond well to me. I have an easy rapport with Cristiano after years of his hospitalizations for mental issues. Both expressed graitude for residence counselor and prayer. Encouraged Cristiano to go home and rest--assuring him of our care for Axel. I will remain available.
--- NOTE | 2018-07-17 04:26 | NUR ---
SHIFT SUMMARY PT HAD OKAY NIGHT, VERY ANXIOUS AT START OF SHIFT. CONVERSATIONS BOUNCE QUICKLY FROM ONE TOPIC TO ANOTHER, THINKING OFTEN VERY PARANOID. PT UPSET ABOUT BEING IN THE HOSPITAL AND WANTS TO "BE OUT IN THE [place]". TALK FOCUSES FREQUENTLY ON PEOPLE THAT HAVE IN HER LIFE. HOWEVER, PT MOSTLY PLEASANT AND COOPERATIVE WITH CARE. DID NOT REQUEST TO GO OUTSIDE THIS EVENING. PACED THE HALLWAY QUICKLY SEVERAL TIMES BUT OTHERWISE REMAINED IN HER ROOM. PT SLEPT WELL AFTER NIGHTTIME MEDICATIONS AND A REQUESTED DOSE OF BENADRYL. VSS. PT SLEEPING AT THIS TIME. WILL CONTINUE TO MONITOR AND REPORT TO DAY RN.
[2018-07-17] MEDS ORDERED: CEPH500 PO (11:30)
[2018-07-17] MEDS ORDERED: ACIDOPHILUS1 EACH PO (11:31)
[2018-07-17] MEDS ORDERED: OLAN5A MM (11:32)
[2018-07-17] MEDS ORDERED: OLAN5 PO (11:33)
--- NOTE | 2018-07-17 12:20 | NUR ---
PT DISCHARGED PT DISCHARGED AT 1215. PT IN STABLE CONDITION WITH VSS. PT & FATHER EDUCATED ON DC INSTRUCTIONS & MED CHANGES. MEDS FAXED TO [facility]. PROFESSOR OF COUNSELING APPT MADE FOR PT & CARE MANAGMENT TO MAKE PSYCHIATRY APPT. PT & FATHER STATED NO FURTHER QUESTIONS. PT REFUSED BEING WHEELED OUT OF FACILITY. PT DRIVEN HOME BY FATHER.
== END 2018-07-17 12:17 | disposition home or self-care (01) | DRG 917 ==
LOC: ER 03:13 → ICUW 04:21 → ER 04:21 → ICUW 04:21 → MEDS 07-10 08:13 → ICUW 07-10 08:14 → MEDS 07-13 13:46 → ENPENDDIS 07-17 10:08 → MEDS 07-17 12:17
PROVIDERS: Emergency Medicine; Internal Medicine; Internal Medicine Critical Care Medicine; ADMIT Internal Medicine
PROC: 0BH17EZ Insertion of Endotracheal Airway into Trachea, Via Natural or Artificial Opening (ICD-10-PCS; principal; 2018-07-10)
PROC: 5A1945Z Respiratory Ventilation, 24-96 Consecutive Hours (ICD-10-PCS; 2018-07-10)
DX: T43.621A Poisoning by amphetamines, accidental (unintentional), initial encounter (principal); G92 Toxic encephalopathy; M62.82 Rhabdomyolysis; E87.0 Hyperosmolality and hypernatremia; E87.6 Hypokalemia; F20.9 Schizophrenia, unspecified; F15.10 Other stimulant abuse, uncomplicated; L98.0 Pyogenic granuloma; J45.909 Unspecified asthma, uncomplicated; F17.210 Nicotine dependence, cigarettes, uncomplicated; L97.519 Non-pressure chronic ulcer of other part of right foot with unspecified severity
CPT/HCPCS: 31500; 31720; 36415; 36600; 51702; 71045; 73620; 80053; 80069; 81001; 81025; 82330; 82550; 82803; 83735; 84100; 84132; 84443; 85025; 87086; 90686; 94002; 94003; 96361-59; 96372; 96374-59; 96375; 96376; 99291-25; 99292; G0008; G0378; G0480; J0330; J0690; J1650; J2060; J2405; J3010; J3480; J7030; J7042; J7050; Q0163

== ENCOUNTER 2018-08-05 12:04 | Day surgery (SDC) | payer OTHER ==
[~2018-08-05 12:04] MED LIST changes: +ACIDOPHILUS1 EACH PO; +OLAN5 PO; +OLAN5A MM
== END 2018-08-05 22:48 | disposition home or self-care (01) ==
LOC: WOUND 12:04
DX: L89.891 Pressure ulcer of other site, stage 1 (principal); M20.5X1 Other deformities of toe(s) (acquired), right foot; J44.9 Chronic obstructive pulmonary disease, unspecified; F20.9 Schizophrenia, unspecified; F31.9 Bipolar disorder, unspecified; F17.210 Nicotine dependence, cigarettes, uncomplicated; Z91.048 Other nonmedicinal substance allergy status; Z88.0 Allergy status to penicillin; Z88.5 Allergy status to narcotic agent; Z91.038 Other insect allergy status
CPT/HCPCS: G0463

== ENCOUNTER 2018-08-27 10:20 | Day surgery (SDC) | payer OTHER | END 2018-08-27 23:00 | disposition home or self-care (01) | LOC: WOUND 10:20 | DX: L97.519 Non-pressure chronic ulcer of other part of right foot with unspecified severity (principal); J44.9 Chronic obstructive pulmonary disease, unspecified; L89.891 Pressure ulcer of other site, stage 1; F43.10 Post-traumatic stress disorder, unspecified; M20.5X1 Other deformities of toe(s) (acquired), right foot; F31.9 Bipolar disorder, unspecified ==

== ENCOUNTER 2018-09-03 10:17 | Day surgery (SDC) | payer OTHER | END 2018-09-03 22:45 | disposition home or self-care (01) | LOC: WOUND 10:17 | DX: L89.891 Pressure ulcer of other site, stage 1 (principal); M20.5X1 Other deformities of toe(s) (acquired), right foot; F31.9 Bipolar disorder, unspecified; F43.10 Post-traumatic stress disorder, unspecified; J44.9 Chronic obstructive pulmonary disease, unspecified; F17.200 Nicotine dependence, unspecified, uncomplicated ==

== ENCOUNTER 2018-09-17 12:22 | Day surgery (SDC) | payer OTHER | END 2018-09-17 23:08 | disposition home or self-care (01) | LOC: WOUND 12:22 | DX: L89.892 Pressure ulcer of other site, stage 2 (principal); M20.5X1 Other deformities of toe(s) (acquired), right foot; J44.9 Chronic obstructive pulmonary disease, unspecified; F31.9 Bipolar disorder, unspecified; F43.10 Post-traumatic stress disorder, unspecified; F17.200 Nicotine dependence, unspecified, uncomplicated | CPT/HCPCS: 87070; 87075; 87147; 87205; G0463 ==

== ENCOUNTER 2018-11-07 11:23 | Observation (INO) | payer OTHER ==
[~2018-11-07] VITALS: Ht 167.6 cm; Wt 59.0 kg
[2018-11-07 14:05] LABS: Acetaminophen, Random <2.0 ug/mL (10.0-30.0); Alanine Aminotransfer (ALT/SGP 43 U/L (12-78); Albumin, Blood 3.5 g/dL (3.4-5.0); Albumin/Globulin Ratio 1.1 (0.8-1.8); Alk Phos 73 U/L (50-136); Anion Gap 10 mmol/L (6-16); Aspartate Aminotrans (AST/SGOT 44 U/L (12-37); Bilirubin, Total 0.4 mg/dL (0.1-1.0); Blood Urea Nitrogen 13 mg/dL (8-24); Bun/Creatinine Ratio 21.8 (12.0-20.0); CO2, Blood 26 mmol/L (21-32); Calcium, Blood 8.5 mg/dL (8.5-10.1); Chloride, Blood 109 mmol/L (98-108); Ethanol (Alcohol), Blood, Med <3 mg/dL; Globulin, Blood 3.2 g/dL (2.2-4.0); Glomerular Filtration Rate >60 (60-); Glucose, Blood 133 mg/dL (70-99); Potassium, Blood 3.4 mmol/L (3.5-5.5); Salicylate <1.7 mg/dL (2.8-20.0); Sodium, Blood 145 mmol/L (136-145); Total Protein, Blood 6.7 g/dL (6.4-8.2)
[2018-11-07 14:10] LABS: Thyroid Stimulating Hormone 0.702 uIU/mL (0.360-4.800)
[2018-11-07 15:14] LABS: BASOPHILS ABSOLUTE AUTO 0.04 K/mm3 (0.00-0.23); BASOPHILS PERCENT AUTO 0 % (0-2); EOSINOPHILS ABSOLUTE AUTO 0.15 K/mm3 (0.00-0.68); EOSINOPHILS PERCENT AUTO 1 % (0-6); Hematocrit 34.5 % (33.0-51.0); Hemoglobin 11.1 g/dL (11.5-16.0); IMMATURE GRAN ABSOLUTE AUTO 0.03 K/mm3 (0.00-0.10); IMMATURE GRAN PERCENT AUTO 0 % (0-1); LYMPHOCYTES ABSOLUTE AUTO 1.96 K/mm3 (0.84-5.20); LYMPHOCYTES PERCENT AUTO 14 % (21-46); MONOCYTES ABSOLUTE AUTO 1.25 K/mm3 (0.16-1.47); MONOCYTES PERCENT AUTO 9 % (4-13); Mean Corpuscular HGB 29.7 pg (26.0-34.0); Mean Corpuscular HGB Conc 32.2 g/dL (31.5-36.5); Mean Corpuscular Volume 92 fL (80-100); Mean Platelet Volume 9.8 fL (9.1-12.4); NEUTROPHILS ABSOLUTE AUTO 11.08 K/mm3 (1.96-9.15); NEUTROPHILS PERCENT AUTO 76 % (41-73); Platelet Count 304 K/mm3 (150-400); RDW Coefficient Variation 14.1 % (11.7-14.2); RDW Standard Deviation 47.4 fL (35.1-46.3); Red Blood Cell Count 3.74 M/mm3 (3.80-5.20); White Blood Cell Count 14.51 K/mm3 (4.00-11.30)
[2018-11-08 04:32] LABS: Source, Urine Clean Catch
[2018-11-08 04:38] LABS: Bilirubin, Urine Neg (Neg); Blood, Urine 5+ (Neg); Glucose Qualitative, Urine Neg (Neg); Ketones, Urine 1+ (Neg); Leukocyte Esterase, Urine 3+ (Neg); Nitrite, Urine Neg (Neg); Protein, Urine 1+ (Neg); Specific Gravity, Urine 1.025 (1.003-1.022); Urobilinogen, Urine 1+ (Normal)
[2018-11-08 04:41] LABS: Appearance, Urine Hazy (Clear); Color, Urine Amber (P-Yellow)
[2018-11-08 04:48] LABS: Amorphous Light (0-Heavy); Bacteria Mod /hpf; Calcium Oxalate Crystals Few /hpf; Mucus Light (0-Heavy); Squamous Epithelial Cells Not Seen /hpf (Few); White Blood Cells, Urine TNTC /hpf (0-5)
[2018-11-08 04:54] LABS: U Amphetamine Screen Not Detected; U Barbituate Screen Not Detected; U Benzodiazapine Screen DETECTED; U Buprenorphine Screen Not Detected; U Cannabinoids Screen DETECTED; U Cocaine Screen Not Detected; U Methadone Screen Not Detected; U Methamphetamine Screen Not Detected; U Opiates Screen Not Detected; U Oxycodone Screen Not Detected; U Phencyclidine Screen Not Detected; U Propoxyphene Screen Not Detected
== END 2018-11-14 12:22 | disposition home or self-care (01) ==
LOC: ER 11:23 → EOR 11:24
PROVIDERS: ADMIT Internal Medicine
DX: F20.89 Other schizophrenia (principal); F31.9 Bipolar disorder, unspecified; F17.210 Nicotine dependence, cigarettes, uncomplicated; Z88.0 Allergy status to penicillin; Z88.5 Allergy status to narcotic agent; Z79.899 Other long term (current) drug therapy
CPT/HCPCS: 80053; 81001; 81025; 84443; 85025; 87077; 87086; 87186; 96372; 99285-25; A9270; G0378; G0480; J1200; J1630; J1631; J2060; J2550; J3486; Q0163

== ENCOUNTER 2019-02-13 12:40 | Emergency (ER) | payer SELFPAY ==
[~2019-02-13] VITALS: Ht 167.6 cm; Wt 26.6 kg
== END 2019-02-13 13:10 | disposition home or self-care (01) ==
LOC: ER 12:40
DX: L97.519 Non-pressure chronic ulcer of other part of right foot with unspecified severity (principal); J44.9 Chronic obstructive pulmonary disease, unspecified; F20.9 Schizophrenia, unspecified; F17.200 Nicotine dependence, unspecified, uncomplicated; Z88.0 Allergy status to penicillin; Z88.8 Allergy status to other drugs, medicaments and biological substances; Z91.030 Bee allergy status; Z88.5 Allergy status to narcotic agent; Z79.899 Other long term (current) drug therapy
CPT/HCPCS: 99282

== ENCOUNTER 2019-04-22 10:10 | Emergency (ER) | payer OTHER ==
[~2019-04-22] VITALS: Ht 170.2 cm; Wt 56.7 kg
[2019-04-22] MEDS ORDERED: Prozac20 MG (11:25)
[2019-04-22] MEDS ORDERED: Cipro500 MG PO (12:42)
[2019-04-22] MEDS ORDERED: Bactrim Ds Tab1 EACH PO (12:42)
[2019-04-22] MEDS ORDERED: IBUP600 PO (12:49)
== END 2019-04-22 12:59 | disposition home or self-care (01) ==
LOC: ER 10:10
DX: L97.519 Non-pressure chronic ulcer of other part of right foot with unspecified severity (principal); Z88.0 Allergy status to penicillin; Z88.8 Allergy status to other drugs, medicaments and biological substances; Z88.5 Allergy status to narcotic agent; Z91.030 Bee allergy status; Z79.899 Other long term (current) drug therapy; J44.9 Chronic obstructive pulmonary disease, unspecified; F17.210 Nicotine dependence, cigarettes, uncomplicated
CPT/HCPCS: 73620; 99283-25

== ENCOUNTER 2019-05-26 00:22 | Day surgery (SDC) | payer OTHER ==
[~2019-05-26 00:22] MED LIST changes: +Bactrim Ds Tab1 EACH PO; +Cipro500 MG PO; +IBUP600 PO; +Prozac20 MG
== END 2019-05-26 22:44 | disposition home or self-care (01) ==
LOC: WOUND 00:22
DX: L89.893 Pressure ulcer of other site, stage 3 (principal); S91.302A Unspecified open wound, left foot, initial encounter; F20.9 Schizophrenia, unspecified; X58.XXXA Exposure to other specified factors, initial encounter; F17.210 Nicotine dependence, cigarettes, uncomplicated; Z88.5 Allergy status to narcotic agent; Z88.0 Allergy status to penicillin; Z88.8 Allergy status to other drugs, medicaments and biological substances; Z91.038 Other insect allergy status; Z79.899 Other long term (current) drug therapy

== ENCOUNTER 2019-05-27 13:21 | Observation (INO) | payer OTHER ==
[~2019-05-27] VITALS: Ht 157.5 cm; Wt 65.8 kg
[2019-05-27 15:12] LABS: BASOPHILS ABSOLUTE AUTO 0.03 K/mm3 (0.00-0.23); BASOPHILS PERCENT AUTO 0 % (0-2); EOSINOPHILS ABSOLUTE AUTO 0.08 K/mm3 (0.00-0.68); EOSINOPHILS PERCENT AUTO 1 % (0-6); Hematocrit 31.9 % (33.0-51.0); Hemoglobin 10.4 g/dL (11.5-16.0); IMMATURE GRAN ABSOLUTE AUTO 0.03 K/mm3 (0.00-0.10); IMMATURE GRAN PERCENT AUTO 0 % (0-1); LYMPHOCYTES ABSOLUTE AUTO 1.59 K/mm3 (0.84-5.20); LYMPHOCYTES PERCENT AUTO 11 % (21-46); MONOCYTES PERCENT AUTO 12 % (4-13); Mean Corpuscular HGB 30.1 pg (26.0-34.0); Mean Corpuscular HGB Conc 32.6 g/dL (31.5-36.5); Mean Corpuscular Volume 92 fL (80-100); Mean Platelet Volume 9.5 fL (9.1-12.4); NEUTROPHILS ABSOLUTE AUTO 10.97 K/mm3 (1.96-9.15); NEUTROPHILS PERCENT AUTO 76 % (41-73); Platelet Count 339 K/mm3 (150-400); RDW Coefficient Variation 14.9 % (11.7-14.2); RDW Standard Deviation 50.5 fL (35.1-46.3); Red Blood Cell Count 3.46 M/mm3 (3.80-5.20)
[2019-05-27 15:37] LABS: Ethanol (Alcohol), Blood, Med <3 mg/dL; Salicylate <1.7 mg/dL (2.8-20.0)
[2019-05-27 15:43] LABS: Acetaminophen, Random <2.0 ug/mL (10.0-30.0); Alanine Aminotransfer (ALT/SGP 68 U/L (12-78); Albumin, Blood 3.8 g/dL (3.4-5.0); Albumin/Globulin Ratio 1.2 (0.8-1.8); Alk Phos 72 U/L (50-136); Anion Gap 9 mmol/L (6-16); Aspartate Aminotrans (AST/SGOT 52 U/L (12-37); Bilirubin, Total 0.7 mg/dL (0.1-1.0); Blood Urea Nitrogen 21 mg/dL (8-24); Bun/Creatinine Ratio 29.5 (12.0-20.0); CO2, Blood 23 mmol/L (21-32); Calcium, Blood 9.1 mg/dL (8.5-10.1); Chloride, Blood 107 mmol/L (98-108); Creatinine, Blood 0.71 mg/dL (0.40-1.00); Globulin, Blood 3.2 g/dL (2.2-4.0); Glomerular Filtration Rate >60 (60-); Glucose, Blood 86 mg/dL (70-99); Potassium, Blood 3.4 mmol/L (3.5-5.5); Sodium, Blood 139 mmol/L (136-145)
[2019-05-27 17:11] LABS: Source, Urine Clean Catch
[2019-05-27 17:16] LABS: Bilirubin, Urine Neg (Neg); Blood, Urine 1+ (Neg); Glucose Qualitative, Urine Neg (Neg); Ketones, Urine 4+ (Neg); Leukocyte Esterase, Urine 1+ (Neg); Nitrite, Urine Neg (Neg); Protein, Urine 2+ (Neg); Urobilinogen, Urine NORM (Normal)
[2019-05-27 17:22] LABS: Appearance, Urine Clear (Clear); Color, Urine Yellow (P-Yellow)
[2019-05-27 17:23] LABS: Bacteria Few /hpf; Squamous Epithelial Cells Few /hpf (Few)
[2019-05-27 17:31] LABS: U Amphetamine Screen DETECTED; U Barbituate Screen Not Detected; U Benzodiazapine Screen DETECTED; U Cocaine Screen Not Detected; U Methadone Screen Not Detected; U Methamphetamine Screen Not Detected; U Opiates Screen Not Detected
[2019-05-27 17:32] LABS: U Cannabinoids Screen DETECTED
[2019-05-27 17:33] LABS: U Buprenorphine Screen Not Detected; U Oxycodone Screen Not Detected
[2019-05-27 17:34] LABS: U Propoxyphene Screen Not Detected
[2019-05-29] MEDS ORDERED: CEPH500 PO (09:33)
[2019-05-29] MEDS ORDERED: Bactrim 400-801 EACH PO (09:33)
== END 2019-05-29 10:00 | disposition home or self-care (01) ==
LOC: ER 13:21 → EOR 13:22
PROVIDERS: Physician Assistant; ADMIT Emergency Medicine
DX: F15.159 Other stimulant abuse with stimulant-induced psychotic disorder, unspecified (principal); S91.102A Unspecified open wound of left great toe without damage to nail, initial encounter; S91.301A Unspecified open wound, right foot, initial encounter; X58.XXXA Exposure to other specified factors, initial encounter
CPT/HCPCS: 36415; 80053; 81001; 81025; 85025; 87086; 96372; 99285-25; A9270; A9270-GY; G0378; G0480; J1200; J1630; J2060; J2250; P9612

== ENCOUNTER 2019-05-29 09:40 | Day surgery (SDC) | payer OTHER ==
[~2019-05-29 09:40] MED LIST changes: +Bactrim 400-801 EACH PO
== END 2019-05-29 23:13 | disposition home or self-care (01) ==
LOC: WOUND 09:40
DX: L89.893 Pressure ulcer of other site, stage 3 (principal); S91.301D Unspecified open wound, right foot, subsequent encounter; S91.302D Unspecified open wound, left foot, subsequent encounter; F20.9 Schizophrenia, unspecified; F17.200 Nicotine dependence, unspecified, uncomplicated; Z79.899 Other long term (current) drug therapy
CPT/HCPCS: G0463

== ENCOUNTER 2019-06-13 00:39 | Day surgery (SDC) | payer OTHER | END 2019-06-13 23:47 | disposition home or self-care (01) | LOC: WOUND 00:39 | DX: L89.893 Pressure ulcer of other site, stage 3 (principal); S91.301A Unspecified open wound, right foot, initial encounter; S91.302A Unspecified open wound, left foot, initial encounter; F20.9 Schizophrenia, unspecified; X58.XXXA Exposure to other specified factors, initial encounter ==

== ENCOUNTER 2019-06-18 00:30 | Day surgery (SDC) | payer OTHER | END 2019-06-18 22:52 | disposition home or self-care (01) | LOC: WOUND 00:30 | DX: L89.893 Pressure ulcer of other site, stage 3 (principal); S91.301D Unspecified open wound, right foot, subsequent encounter; S91.302D Unspecified open wound, left foot, subsequent encounter; F20.9 Schizophrenia, unspecified; F17.200 Nicotine dependence, unspecified, uncomplicated ==

== ENCOUNTER 2019-06-25 03:17 | Day surgery (SDC) | payer OTHER | END 2019-06-25 22:51 | disposition home or self-care (01) | LOC: WOUND 03:17 | DX: S91.301D Unspecified open wound, right foot, subsequent encounter (principal); S91.302D Unspecified open wound, left foot, subsequent encounter; F20.9 Schizophrenia, unspecified; F17.200 Nicotine dependence, unspecified, uncomplicated ==

== ENCOUNTER 2019-07-25 18:40 | Inpatient (IN) | payer OTHER ==
[~2019-07-25] VITALS: Ht 157.5 cm; Wt 40.0 kg
[2019-07-25 19:32] LABS: BASOPHILS ABSOLUTE AUTO 0.05 K/mm3 (0.00-0.23); BASOPHILS PERCENT AUTO 0 % (0-2); EOSINOPHILS ABSOLUTE AUTO 0.06 K/mm3 (0.00-0.68); EOSINOPHILS PERCENT AUTO 0 % (0-6); Hematocrit 38.6 % (33.0-51.0); Hemoglobin 12.5 g/dL (11.5-16.0); IMMATURE GRAN ABSOLUTE AUTO 0.05 K/mm3 (0.00-0.10); IMMATURE GRAN PERCENT AUTO 0 % (0-1); LYMPHOCYTES ABSOLUTE AUTO 1.68 K/mm3 (0.84-5.20); LYMPHOCYTES PERCENT AUTO 10 % (21-46); MONOCYTES ABSOLUTE AUTO 1.11 K/mm3 (0.16-1.47); MONOCYTES PERCENT AUTO 7 % (4-13); Mean Corpuscular HGB 29.1 pg (26.0-34.0); Mean Corpuscular HGB Conc 32.4 g/dL (31.5-36.5); Mean Corpuscular Volume 90 fL (80-100); Mean Platelet Volume 9.1 fL (9.1-12.4); NEUTROPHILS ABSOLUTE AUTO 14.23 K/mm3 (1.96-9.15); NEUTROPHILS PERCENT AUTO 83 % (41-73); Platelet Count 511 K/mm3 (150-400); RDW Coefficient Variation 13.7 % (11.7-14.2); RDW Standard Deviation 45.1 fL (35.1-46.3); White Blood Cell Count 17.18 K/mm3 (4.00-11.30)
[2019-07-25 19:35] LABS: Source, Urine Catheter
[2019-07-25 19:40] LABS: Appearance, Urine Cloudy (Clear); Bilirubin, Urine Neg (Neg); Blood, Urine 2+ (Neg); Color, Urine Yellow (P-Yellow); Glucose Qualitative, Urine 1+ (Neg); Ketones, Urine 1+ (Neg); Leukocyte Esterase, Urine 2+ (Neg); Nitrite, Urine Neg (Neg); Protein, Urine 3+ (Neg); Specific Gravity, Urine 1.025 (1.003-1.022); Urobilinogen, Urine NORM (Normal)
[2019-07-25 19:46] LABS: Red Blood Cells, Urine 0-2 /hpf (0-2); Squamous Epithelial Cells Few /hpf (Few)
[2019-07-25 19:47] LABS: Amorphous Mod (0-Heavy); Bacteria Few /hpf; Mucus Light (0-Heavy)
[2019-07-25 19:50] LABS: Acetaminophen, Random <2.0 ug/mL (10.0-30.0); Alanine Aminotransfer (ALT/SGP 33 U/L (12-78); Albumin, Blood 3.7 g/dL (3.4-5.0); Alk Phos 77 U/L (50-136); Anion Gap 12 mmol/L (6-16); Aspartate Aminotrans (AST/SGOT 57 U/L (12-37); Bilirubin, Total 0.3 mg/dL (0.1-1.0); Blood Urea Nitrogen 16 mg/dL (8-24); Bun/Creatinine Ratio 15.4 (12.0-20.0); CO2, Blood 24 mmol/L (21-32); Calcium, Blood 8.9 mg/dL (8.5-10.1); Chloride, Blood 108 mmol/L (98-108); Creatinine, Blood 1.04 mg/dL (0.40-1.00); Ethanol (Alcohol), Blood, Med <3 mg/dL; Globulin, Blood 3.7 g/dL (2.2-4.0); Glomerular Filtration Rate >60 (60-); Glucose, Blood 83 mg/dL (70-99); Potassium, Blood 3.5 mmol/L (3.5-5.5); Salicylate 5.1 mg/dL (2.8-20.0); Sodium, Blood 144 mmol/L (136-145); Total Protein, Blood 7.4 g/dL (6.4-8.2)
[2019-07-25 19:54] LABS: U Amphetamine Screen DETECTED; U Barbituate Screen Not Detected; U Benzodiazapine Screen Not Detected; U Buprenorphine Screen Not Detected; U Cannabinoids Screen DETECTED; U Cocaine Screen Not Detected; U Methadone Screen Not Detected; U Methamphetamine Screen DETECTED; U Opiates Screen Not Detected; U Oxycodone Screen Not Detected; U Phencyclidine Screen Not Detected; U Propoxyphene Screen Not Detected
[2019-07-25 23:04] LABS: Appearance, CSF Clear (Clear); Color, CSF No Color (No Color); WBC Count, CSF 3 /mm3 (0-5)
[2019-07-25 23:05] LABS: RBC Count, CSF 0 /mm3 (0-0)
[2019-07-25 23:10] LABS: Appearance, CSF Clear (Clear); Color, CSF No Color (No Color)
[2019-07-25 23:11] LABS: RBC Count, CSF 0 /mm3 (0-0); WBC Count, CSF 0 /mm3 (0-5)
[2019-07-25 23:24] LABS: Glucose, CSF 61 mg/dL (40-70)
[2019-07-25 23:31] LABS: Lymphocytes, CSF 82 % (40-80); Monocytes, CSF 18 % (15-45)
[2019-07-26 00:24] LABS: Cryptococcus Neoformans/Gattii Not Detected (NOT DETECT); Enterovirus Not Detected (NOT DETECT); Escherichia Coli K1 Not Detected (NOT DETECT); Haemophilus Influenza Not Detected (NOT DETECT); Herpes Simplex Virus 1 Not Detected (NOT DETECT); Herpes Simplex Virus 2 Not Detected (NOT DETECT); Human Herpesvirus 6 Not Detected (NOT DETECT); Human Parechovirus Not Detected (NOT DETECT); Listeria Monocytogenes Not Detected (NOT DETECT); Neisseria Meningitidis Not Detected (NOT DETECT); Streptococcus Agalactiae Not Detected (NOT DETECT); Streptococcus Pneumoniae Not Detected (NOT DETECT); Varicella Zoster Virus Not Detected (NOT DETECT)
--- NOTE | 2019-07-26 02:41 | NUR ---
ADMIT TO ICU PT ARRIVED TO ICU FROM ER. SHE WAS FAIRLY CALM BUT AGGITATED WITH ANY TYPE OF CARE. THRASHING ABOUT IN BED. SHE HAS NO CLEAR SPEECH PATTERN. SHE MOANS OR HAS GARBLED SPEECH WITH ANY CARE. PHOTOS WERE TAKEN OF PT'S SCATTERED SKIN ISSUES. SEE CHART. PODIETRY CONSULT CALLED IN REGARDING PT'S RIGHT BIG TOE INFECTION. PT'S SKIN OVERALL IS VERY RED AND IRRITATED. SHE HAS MANY VARRIOUS STAGES OF BRUSIES TO ARMS AND LEGS. SHE HAS BLUE PAIN TO ABD AND ON HER HANDS. FACE IS FLUSHED. FEET AND HANDS HAVE DIRT PRESENT. PT APPEARS TO BE VERY MALNURISHED. PT HAD IV IN RIGHT AC AND THIS WAS D/C DUE TO NOT BEING PATENT. TWO NEW IV'S STARTED BY SHEA. IV VANCO RUNNING ORDERED WELL NS BOLUS AND THEN MAINTANENCE FLUIDS WILL BE STARTED. PT IS ON RA WITH NO S/S OF RESPIRATORY DISTRESS. ATTENDS PLACED ON PT. BED ALARM ON PT. WILL CON'T TO MONITOR AND KEEP PT SAFE T/O SHIFT.
[2019-07-26 03:16] LABS: BASOPHILS ABSOLUTE AUTO 0.08 K/mm3 (0.00-0.23); BASOPHILS PERCENT AUTO 1 % (0-2); EOSINOPHILS ABSOLUTE AUTO 0.14 K/mm3 (0.00-0.68); EOSINOPHILS PERCENT AUTO 1 % (0-6); Hematocrit 37.8 % (33.0-51.0); IMMATURE GRAN ABSOLUTE AUTO 0.04 K/mm3 (0.00-0.10); IMMATURE GRAN PERCENT AUTO 0 % (0-1); LYMPHOCYTES ABSOLUTE AUTO 2.59 K/mm3 (0.84-5.20); LYMPHOCYTES PERCENT AUTO 18 % (21-46); MONOCYTES ABSOLUTE AUTO 1.22 K/mm3 (0.16-1.47); MONOCYTES PERCENT AUTO 9 % (4-13); Mean Corpuscular HGB Conc 31.7 g/dL (31.5-36.5); Mean Corpuscular Volume 91 fL (80-100); NEUTROPHILS ABSOLUTE AUTO 10.25 K/mm3 (1.96-9.15); NEUTROPHILS PERCENT AUTO 72 % (41-73); Platelet Count 393 K/mm3 (150-400); RDW Coefficient Variation 13.8 % (11.7-14.2); RDW Standard Deviation 46.5 fL (35.1-46.3); Red Blood Cell Count 4.14 M/mm3 (3.80-5.20); White Blood Cell Count 14.32 K/mm3 (4.00-11.30)
[2019-07-26 03:39] LABS: Anion Gap 8 mmol/L (6-16); Blood Urea Nitrogen 19 mg/dL (8-24); Bun/Creatinine Ratio 31.8 (12.0-20.0); CO2, Blood 25 mmol/L (21-32); Calcium, Blood 8.3 mg/dL (8.5-10.1); Chloride, Blood 109 mmol/L (98-108); Glomerular Filtration Rate >60 (60-); Glucose, Blood 62 mg/dL (70-99); Potassium, Blood 3.8 mmol/L (3.5-5.5); Sodium, Blood 142 mmol/L (136-145)
--- NOTE | 2019-07-26 05:11 | NUR ---
MORNING LABS THIS AM LABS WERE DRAWN WITH NO ISSUES. RESULTS SHOWED A LOW GLUCOSE LEVEL. DR CARDONA WAS CALLED AND ORDERED TO HAVE AN AMP OF D50 IV GIVEN TO PT. THIS WAS ADMINISTERED ORDERED. WILL RE-CHECK BLOOD SUGARS IN ONE HOUR. PT CON'T TO THRASH ABOUT IN BED AT TIMES. IV TO LEFT UPPER ARM INFILTRATED WITH NS RUNNING. WARM PACK APPLIED TO ARM. WILL MONITOR PT T/O REMAINDER OF SHIFT.
--- NOTE | 2019-07-26 07:15 | NUR ---
PT AWAKENS TO VOICE AND IS VERY AGITATED AND CONFUSED. THRASHING AROUND IN THE BED. PT REQUESTED OJ-REQUEST GRANTED. PT ABLE TO HOLD THE OJ AND DRINK WITHOUT ASSISTANCE. MOST SPEECH IS GARBLED AND NONSENSICAL. PT SLEEPS FREQUENTLY WHEN NOT DISTURBED. PT AFEBRILE-ECG SHOWS ST. BP WNL. LUNGS CLEAR AND SATS>90% ON RA. WILL PROVIDE CHRISTA. ATTENDS IN PLACE PT IS INCONTINENT. MULTIPLE BRUISES AND WOUNDS NOTED. RIGHT GREAT TOE RED AND SWOLLEN. DR. BRISCOE HAS BEEN CONSULTED.
--- NOTE | 2019-07-26 08:02 | NUR ---
PT GIVEN BREAKFAST TRAY. PT STATES "I NEED HEMPHILL AND MORE EGGS," BEFORE SHE EVEN STARTED EATING. PT MADE AWARE THAT "SHORT ORDERS" ARE NOT AVAILABLE. ENCOURAGED PT TO LET RN ASSIST HER WITH FILLING OUT LUNCH AND DINNER MENU. PT ATE 100% OF HER EGGS IN APROX. 30 SECONDS AND THEN PUSHED THE TRAY AWAY. SHE THEN CLOSED HER EYES AND REFUSED TO RESPOND WHEN ASKED WHAT SHE WOULD LIKE TO SELECT FROM HER MENU.
--- NOTE | 2019-07-26 09:52 | NUR ---
DR. QUEVEDO INTO SEE PT. PT STATED THAT SHE HAS AN APPOINTMENT WITH A "PAIN SPECIALIST." INFORMED PT THAT DR. BRISCOE HAS BEEN CONSULTED IN REGARDS TO THE WOUND ON HER RIGHT GREAT TOE. PT DEMANDING THAT THE IV IN HER ARM BE "TAKEN OUT." RN INFORMED PT THAT THE IV IS NECESSARY IN ORDER TO DELIVER THE IV ANTIBIOTICS NEEDED TO TREAT THE WOUND ON HER RIGHT TOE. PT STATES "SO, YOU CAN GIVE THEM TO ME ORALLY." SHE THEN ROLLED OVER AND APPEARED TO GO TO SLEEP.
--- NOTE | 2019-07-26 11:40 | NUR ---
PT CRYING OUT "HEY! I NEED A BATHROOM NOW!" PT IS VERY IMPULSIVE. NOT COOPERATIVE WITH CARE. ATTEMPTED TO ASSIST UP TO BSC-PT UNAWARE OF LINES AND TUBES. DOES NOT FOLLOW INSTRUCTIONS TO WAIT. PT DID VOID 650 CC DARK, ROCHELLE URINE AND HAD SMALL, HARD, BROWN BM. ATTEMPTED TO COMPLETE BATH WHILE PT OOB. PT REFUSED. PT ALSO REFUSED HAND WASHING. SHE STATED THAT SHE IS "STARVING" AND REFUSED TO WASH HER HANDS PRIOR TO EATING LUNCH.
--- NOTE | 2019-07-26 13:10 | NUR ---
DR. BRISCOE IN TO SEE PT. INFORMED PT OF HER TREATMENT OPTIONS. RECOMMENDING THAT RIGHT GREAT TOE BE AMPUTATED IN THE AM. PT ARGUMENTATIVE WITH . SHE DID ACKNOWLEDGE THAT IF SHE CHOOSES NOT TO HAVE RIGHT GREAT TOE AMPUTATION, SHE WILL LIKELY LOSE THE RIGHT FOOT-PT STATES "I KNOW WHAT YOU ARE RECOMMENDING, BUT I'M NOT GOING TO DO IT."
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
--- NOTE | 2019-07-26 16:38 | NUR ---
WHILE ATTEMPTING TO TRANSFER PT TO ROOM 352, PT BECAME EXTREMELY ANXIOUS. SHE WAS YELLING FOR "BENADRYL" TRYING TO GET OUT OF WHEELCHAIR. PRIOR TO DEPARTURE FROM ICU, PT WAS AGITATED THAT SHE WAS BEING TRANSFERED FROM ICU-STATING "I LIKE THIS ROOM, I DON'T WANT TO LEAVE." RN EXPLAINED THAT ICU BED NEEDED FOR CRITICAL PATIENTS. RN RETURNED TO ICU 6 IN ATTEMPT TO MED WITH BENADRYL THAT PT WAS DEMANDING. PT INSISTED THAT SHE NEEDED TO POOP AND DID NOT WANT THE BENADRYL UNTIL AFTER. PT VERY IMPULSIVE AND RESISTANT TO CARE. AFTER SHE VOIDED, MED WITH BENADRYL 25 MG IVP X 1 AND ATIVAN 0.5 MG IVP-PT DRIFTED OFF TO SLEEP-TRANSFERED TO ROOM 352 VIA BED THIS TIME. REPORT TO TL MONSON.
--- NOTE | 2019-07-26 16:45 | NUR ---
RECEIEVED REPORT FROM ENVIRONMENTAL EMERGENCIES ASSISTANT, TORRI @ 1610. PATIENT TO BE TRANSFERED TO ROOM 1610.
--- NOTE | 2019-07-26 17:56 | NUR ---
PATIENT ARRIVED TO ROOM 352 ABOUT AN HOUR AGO. SHE WAS TRANSFERED FROM ICU AND HAS BEEN SEDATED SINCE D/T AN EPISODE THAT OCCURED DURING HER TRANSFER UP HERE. THE PATIENT HAS BEEN STARTED ON IV ABX WITHOUT S/SX OF ADVERSE REACTIONS NOTED. WILL CONTINUE TO MONITOR PATIENT AND WATCH FOR HER TO WAKE UP TO PROVIDE WITH DINNER.
--- NOTE | 2019-07-26 20:00 | NUR ---
COMPLETED A SUICIDE ASSESSMENT ON THE PATIENT WHICH RESULTED IN A MODERATE LEVEL RISK DUE TO PAST THOUGHTS OF HARMING HERSELF. PATIENT STATES THAT THESE THOUGHTS WERE WHEN SHE WAS A CHILD AND CLAIMS THAT SHE WAS NOT SUICIDAL THEN, NOR IS SHE NOW.
--- NOTE | 2019-07-26 20:41 | NUR ---
PHYSICIAN COMMUNICATION AT 2024 CONTACTED THE WEB OPERATIONS SPECIALIST PHYSICIAN, KAILA FLORES, THAT THE PATIENT WHO HAD BEEN RECENTENTLY TRANSFERRED FROM THE ICU WAS LABELED HIGH RISK SI DUE TO HER SUICIDE RISK ASSESSMENT NOT BEING COMPLETED UP TO THIS POINT. INFORMED HER THAT THIS RN COMPLETED THE ASSESSMENT AND THE PATIENT RESULTED IN A MODERATE RISK DUE TO HER HAVING THOUGHTS OF HARMING HERSELF A CHILD BUT NEVER ANY SUICIDAL IDEATIONS. THIS NURSE ALSO INFORMED THE PHYSICIAN THAT OF THIS POINT NO SUICIDE PRECAUTION ORDERS HAD BEEN ENTERED INTO THE PATIENT'S CHART. KAILA AND THIS NURSE DISCUSSED THE ISSUE AND AGREED THAT DUE TO THE PATIENT BEING ADMITTED WITH ENCEPHALOPATHY, HER RECENT BOUT OF PSYCHOSIS, AND HER EXTENSIVE MENTAL HISTORY THAT IT WOULD BE BEST TO PLACE HER ON MODERATE LEVEL PRECAUTIONS WITH CAMERA MONITORING.
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
--- NOTE | 2019-07-27 03:50 | NUR ---
PHYSICIAN COMMUNICATION NOTIFIED THE DINING SERVICES DIRECTOR PHYSICIAN, DR CARDONA, THAT THE PATIENT'S IV BECAME INFILTRATED AND IS REFUSING A NEW IV TO BE PLACE, AND THEREFORE IS UNABLE TO RECEIVE HER IV ANTIBIOTICS.
--- NOTE | 2019-07-27 04:09 | NUR ---
PATIENT REFUSED LAB DRAW AND VITAL SIGNS.
--- NOTE | 2019-07-27 04:36 | NUR ---
SPOKE WITH CHARGE NURSE, KATIA REY, ABOUT THE PATIENT'S BEHAVIOR AND HER REFUSING ALL CARE. IT WAS AGREED THAT THE PATIENT SHOULD BE OFFERED THE OPPORTUNITY TO LEAVE AMA. CALLED SECURITY X2 TO THE UNIT AND TWO OTHER NURSES, CHOLO FENG AND ROSS RED, BACKUP. THIS NURSE WENT INTO THE PATIENT'S ROOM WITH DISPOSABLE CLOTHING, THE PATIENT DID NOT HAVE ANY BELONGINGS OF HER OWN WITH HER, TO DISCUSS HER BEHAVIOR WITH HER AND PRESENT THE AMA FORM. THIS NURSE ASKED THE PATIENT WHY SHE REFUSED TO HAVE HER LABS DRAWN. THE PATIENT STATED IT WAS BECAUSE SHE WAS TOLD SHE NEEDED BREAKFAST FIRST BEFORE SOME OF HER TESTS WERE DONE, THIS WAS NOT TRUE. THIS NURSE ASKE THE PATIENT WHY SHE DID NOT LET THE OVERSEER KOSHER KITCHEN TAKE HER VITALS, THE PATIENT STATED THAT SHE DID, THIS NURSE REMINDED HER THAT THE OVERSEER KOSHER KITCHEN WAS IN A FEW MINUTES EARLIER AND REPORTED TO THIS NURSE THAT SHE REFUSED THE VITALS. THIS NURSE ALSO REMINDED THE PATIENT THAT SHE HAD REFUSED THE PLACEMENT OF A NEW IV SO THAT SHE COULD RECEIVE IV ANTIBIOTICS FOR THE INFECTION IN HER FOOT, THE PATIENT STATED THAT SHE DID NOT NEED ANTIBIOTICS. THIS NURSE EXPLAINED TO THE PATIENT THAT SINCE SHE IS REFUSING ALL CARE, THAT HOSPITAL STAFF WILL BE UNABLE TO HELP HER GET WELL, AND THAT IF THEY ARE UNABLE TO HELP HER, SHE CANNOT STAY AND USE HOSPITAL RESOURCES. THIS NURSE OFFERED THE PATIENT TWO OPTIONS, EITHER START COMPLYING WITH CARE, OR SIGN AN AMA FORM AND GO HOME. THE PATIENT CHOSE TO SIGN THE FORM SAYING THAT SHE WOULD RATHER BE HOME THAN "DEAL WITH THE TORTURE SHE WAS GOING THROUGH HERE. THIS NURSE EXPLAINED THAT IF SHE WENT HOME SHE WOULD NOT BE ON ANTIBIOTICS AND THE INFECTION IN HER FOOT WOULD LIKELY WORSEN LEADING TO POSSIBLE AMPUTATION AND POSSIBLE SEPSIS. SHE STILL CHOSE TO SIGN THE FORM. THIS NURSE REMOVED THE PATIENT'S INFILTRATED IV AND A SECOND RN, CHOLO FENG, ATTEMPTED TO HELP THE PATIENT UNDRESS AND REMOVE HER TELEMETRY UNIT. THE PATIENT WAS YELLING THE WHOLE TIME SAYING THE OTHER NURSE WAS CREEPY AND LOOKED LIKE A RAPIST. AFTER SHE WAS DRESSED, SHE WAS ESCORTED OUT BY SECURITY PERSONNEL X2 AT 0428. NOTIFIED ELECTRICAL ENGINEERING DESIGNER PHYSICIAN, DR CARDONA, OF THE PATIENT LEAVING AMA AT 0433.
== END 2019-07-27 04:29 | disposition left against medical advice (07) | DRG 872 ==
LOC: ER 18:40 → EOR 18:41 → ER 18:41 → ICUE 18:41 → ICUW 18:41 → EOR 18:41 → ICUW 07-26 00:02 → EOR 07-26 00:23 → ICUW 07-26 00:23 → ICUE 07-26 00:38 → ICUW 07-26 00:38 → ICUE 07-26 00:38 → MEDS 07-26 16:31 → ICUE 07-26 16:31 → MEDS 07-26 16:31
PROVIDERS: Emergency Medicine; ADMIT Internal Medicine
PROC: 009U3ZX Drainage of Spinal Canal, Percutaneous Approach, Diagnostic (ICD-10-PCS; principal; 2019-07-25)
DX: A41.9 Sepsis, unspecified organism (principal); F23 Brief psychotic disorder; N17.9 Acute kidney failure, unspecified; M86.671 Other chronic osteomyelitis, right ankle and foot; M84.674A Pathological fracture in other disease, right foot, initial encounter for fracture; F19.10 Other psychoactive substance abuse, uncomplicated; Z78.1 Physical restraint status; E11.69 Type 2 diabetes mellitus with other specified complication; E11.621 Type 2 diabetes mellitus with foot ulcer; L97.529 Non-pressure chronic ulcer of other part of left foot with unspecified severity; J44.9 Chronic obstructive pulmonary disease, unspecified; Z88.0 Allergy status to penicillin; Z87.820 Personal history of traumatic brain injury; F17.210 Nicotine dependence, cigarettes, uncomplicated
CPT/HCPCS: 36415; 62270; 70450; 73660; 80048; 80053; 81001; 81025; 82945; 82947; 83605; 84157; 85025; 87040; 87070; 87075; 87077; 87086; 87147; 87186; 87205; 87483; 89051; 90471; 90714; 96372-59; 99285-25; G0480; J0692; J0696; J1200; J1630; J1650; J2060; J3370; J7030; J7050; P9612

== ENCOUNTER 2019-07-27 06:09 | Emergency (ER) | payer OTHER | END 2019-07-27 06:34 | disposition left against medical advice (07) | LOC: ER 06:09 | DX: Z53.21 Procedure and treatment not carried out due to patient leaving prior to being seen by health care provider (principal) ==